=== PATIENT | female | born 1985 | race African-American/Black ===

== ENCOUNTER 2019-11-10 17:53 | Emergency (ER) | payer OTHER ==
[2019-11-10 18:20] VITALS: BMI 25.4
--- NOTE | 2019-11-10 18:47 | PDOC ---
Attending Attestation - Resident Resident Name: Bong Morse - HPI HPI: 11/10/19 19:30 Pt presents to the ED complaining of a one week history of fever, cough and shortness of breath. Diagnosed with flu in [place], but reports that her cough and fever have been persistent. Today, reports that she became acutely short of breath. Found to be saturating 80s on 6 L NC. PAtient denies past medical history, including lung problems or HIV. Denies leg swelling or pain. - Physicial Exam PE: 11/10/19 19:32 Agree with resident exam. PAtient is hypoxic, speaking in 3-4 word sentences. + tachycardia and fever. + decreased air entry and crackles in the bases. No accessory muscle use. - Medical Decision Making 11/10/19 19:33 Pt presents to the ED complaining of shortness of breath and fever. FOund to be febrile and severely hypoxic on arrival to the ED. STarted on high flow with great improvement in her oxygenation and improvement in her symptoms. Differential includes PNA, influenza, sepsis, HIV with PCP PNA, less likely PE, less likely pulmonary manefestations of lupus or sarcoid. Will check labs, start IV antibiotics and check CT chest. Will admit to medicine.
[2019-11-10] MEDS ORDERED: SODIUM CHLORIDE 1,769 ML IV ONE (18:48)
[2019-11-10] MEDS ORDERED: ACETAMINOPHEN 1000 MG/100 ML VIAL (NON FORMULARY) IVPB ONE (18:57)
[2019-11-10] MEDS ORDERED: ACETAMINOPHEN INJECTION 100 ML IVPB ONE (19:01)
[2019-11-10] MEDS ORDERED: PIPERACILLIN/TAZOB 4.5 GM 4.5 GM in DEXTROSE 5%-WATER 100 ML IVPB ONE (19:21)
[2019-11-10 19:22] LABS: BASO % 0.5 % (0-2.0); EOS % 0.1 % (0-4.5); LYMPH % 10.8 % (8-40); MCH 32.3 pg (25.7-33.7); MCHC 33.4 g/dl (32.0-36.0); MEAN CELL VOLUME 96.7 fl (80-96); MEAN PLT VOLUME 7.2 fl (7.5-11.1); MONO % 7.2 % (3.8-10.2); NEUT % 81.4 % (42.8-82.8); PLATELET COUNT 309 K/MM3 (134-434); RBC 3.73 M/mm3 (3.60-5.2); RDW 15.6 % (11.6-15.6); WHITE BLOOD COUNT 8.8 K/mm3 (4.0-10.0)
[2019-11-10] MEDS ORDERED: PIPERACILLIN/TAZOB 4.5 GM 4.5 GM/100 ML BAG IVPB ONE (19:29)
[2019-11-10 19:43] LABS: INR 1.16 (0.83-1.09); PROTHROMBIN TIME (PATIENT) 13.7 SEC (9.7-13.0)
[2019-11-10 19:46] LABS: ACTIVATED PTT 31.6 SECONDS (25.2-36.5)
[2019-11-10 19:50] LABS: ARTERIAL BLD GAS O2 SATURATION 69.6 % (95-98); ARTERIAL BLOOD GAS BASE EXCESS -1.5 meq/l (-2-2); ARTERIAL BLOOD GAS PCO2 35.9 mmHg (35-45); ARTERIAL BLOOD GAS pH 7.41 (7.35-7.45)
[2019-11-10 19:52] LABS: ARTERIAL BLOOD GAS PO2 < 49 mmHg (80-100)
[2019-11-10 19:53] LABS: ALLENS TEST POSITIVE
[2019-11-10 20:07] LABS: ALBUMIN 2.7 g/dl (3.4-5.0); ALK PHOS 76 U/L (45-117); ANION GAP 9 MMOL/L (8-16); BILIRUBIN,TOTAL 0.9 mg/dL (0.2-1); BLOOD UREA NITROGEN 11.8 mg/dL (7-18); CALCIUM 8.3 mg/dL (8.5-10.1); CHLORIDE 106 mmol/L (98-107); CO2 22 mmol/L (21-32); CREATININE 0.8 mg/dL (0.55-1.3); GLUCOSE,RANDOM 106 mg/dL (74-106); POTASSIUM 3.7 mmol/L (3.5-5.1); SGOT/AST 35 U/L (15-37); SGPT/ALT 14 U/L (13-61); SODIUM 137 mmol/L (136-145); TOT PROT 6.7 g/dl (6.4-8.2)
[2019-11-10 20:40] LABS: ARTERIAL BLD GAS O2 SATURATION 90.2 % (95-98); ARTERIAL BLOOD GAS BASE EXCESS -2.8 meq/l (-2-2); ARTERIAL BLOOD GAS PCO2 36.1 mmHg (35-45); ARTERIAL BLOOD GAS PO2 63.6 mmHg (80-100); ARTERIAL BLOOD GAS pH 7.39 (7.35-7.45); CARBOXYHEMOGLOBIN 1.1 % (0-2)
[2019-11-10] MEDS ORDERED: RAPID SEQUENCE INTUBATION KIT NR ONE ×2 (21:19→23:21)
[2019-11-10] MEDS ORDERED: PROPOFOL 1,000,000 MCG/100 ML VIAL ONE (21:21)
--- NOTE | 2019-11-10 21:43 | PDOC ---
History of Present Illness - General Chief Complaint: Cold Symptoms Stated Complaint: CHEST PAIN Time Seen by Provider: 11/10/19 18:24 - History of Present Illness Initial Comments: Ms. Stout is a 33 y/o female with no reported PMH. Reports that she was in [place] for the past two weeks when she was diagnosed with the flu and started feeling ill. She reports one week of fever, cough, and shortness of breath. Returned from [place] yesterday on a 2 hour flight. Today, she became acutely short of breath and presented to the ED. Saturating in the 60s on room air and 80s on 6L NC. Denies history of lung disease or family history of lung disease. Denies HIV or other immunocompromised state. Denies leg swelling or pain. Febrile. Past History - Past Medical History Allergies/Adverse Reactions: Allergies Allergy/AdvReac Type Severity Reaction Status Date / Time No Known Allergies Allergy Verified 11/10/19 18:13 Home Medications: Ambulatory Orders NK [No Known Home Medication] 11/10/19 COPD: No - Psycho Social/Smoking Cessation Hx Smoking History: Unknown if ever smoked Have you smoked in the past 12 months: No Hx Alcohol Use: No Drug/Substance Use Hx: No *Physical Exam - Vital Signs Last Vital Signs Temp Pulse Resp BP Pulse Ox 101.5 F H 110 H 36 H 142/103 H 80 L 11/10/19 17:55 11/10/19 21:00 11/10/19 21:00 11/10/19 21:00 11/10/19 21:00 - Physical Exam Agree with resident exam. PAtient is hypoxic, speaking in 3-4 word sentences. + tachycardia and fever. + decreased air entry and crackles in the bases. No accessory muscle use. ED Treatment Course - LABORATORY CBC & Chemistry Diagram: 11/10/19 18:41 11/10/19 18:41 - ADDITIONAL ORDERS Additional order review: Laboratory Results 11/10/19 11/10/19 11/10/19 20:12 19:20 18:41 PT with INR INR PTT (Actin FS) Anticoagulation Therapy No Result Required. No Result Required. Puncture Site No Result Required. Right radial ABG pH 7.39 7.41 ABG pCO2 at Pt Temp 36.1 35.9 ABG pO2 at Pt Temp 63.6 L < 49 L* ABG HCO3 21.2 L 22.2 ABG O2 Sat (Measured) 90.2 L 69.6 L ABG O2 Content 14.7 Fiberglass Technician ABG Base Excess -2.8 L -1.5 Jose Test No Result Required. Positive Carboxyhemoglobin 1.1 1.0 Methemoglobin < 1.0 1.2 O2 Delivery Device No Result Required. High flow n/c Oxygen Flow Rate No Result Required. 65% Vent Mode No Result Required. No Result Required. Vent Rate No Result Required. No Result Required. Mechanical Rate No Result Required. No Result Required. Pressure Support Vent No Result Required. No Result Required. Sodium Potassium Chloride Carbon Dioxide Anion Gap BUN Creatinine Est GFR (CKD-EPI)AfAm Est GFR (CKD-EPI)NonAf Random Glucose Lactic Acid Calcium Total Bilirubin AST ALT Alkaline Phosphatase Creatine Kinase Troponin I Total Protein Albumin Serum , Qual Negative 11/10/19 11/10/19 11/10/19 18:41 18:41 18:41 PT with INR 13.70 H INR 1.16 H PTT (Actin FS) 31.6 Anticoagulation Therapy Puncture Site ABG pH ABG pCO2 at Pt Temp ABG pO2 at Pt Temp ABG HCO3 ABG O2 Sat (Measured) ABG O2 Content ABG Base Excess Jose Test Carboxyhemoglobin Methemoglobin O2 Delivery Device Oxygen Flow Rate Vent Mode Vent Rate Mechanical Rate Pressure Support Vent Sodium 137 Potassium 3.7 Chloride 106 Carbon Dioxide 22 Anion Gap 9 BUN 11.8 Creatinine 0.8 Est GFR (CKD-EPI)AfAm 112.27 Est GFR (CKD-EPI)NonAf 96.87 Random Glucose 106 Lactic Acid 1.4 Calcium 8.3 L Total Bilirubin 0.9 AST 35 ALT 14 Alkaline Phosphatase 76 Creatine Kinase 33 Troponin I < 0.02 Total Protein 6.7 Albumin 2.7 L Serum , Qual 11/10/19 18:41 RBC 3.73 MCV 96.7 H MCHC 33.4 RDW 15.6 MPV 7.2 L Neutrophils % 81.4 Lymphocytes % 10.8 Monocytes % 7.2 Eosinophils % 0.1 Basophils % 0.5 - RADIOLOGY Radiology Studies Ordered: Category Date Time Status CHEST CTA [CT] Stat CT Scan 11/10/19 19:29 Completed CHEST X-RAY PORTABLE* [RAD] Stat Radiology 11/10/19 18:34 Taken - Medications Given in the ED: ED Medications Discontinued Medications Generic Name Dose Route Start Last Admin Trade Name Freq PRN Reason Stop Dose Admin Acetaminophen 1,000 mg 11/10/19 18:57 11/10/19 19:07 Ofirmev Injection - IVPB 11/10/19 18:58 1,000 mg ONCE ONE Administration Sodium Chloride 1,769 mls @ 884.5 mls/hr 11/10/19 18:48 11/10/19 19:07 Normal Saline - 30 ml/kg infuse over 2 hr (1769 ml) 11/10/19 20:47 884.5 mls/hr IV Administration ONCE ONE Piperacillin Sod/Tazobactam 100 mls @ 200 mls/hr 11/10/19 19:21 11/10/19 19: 50 Sod 4.5 gm/ Dextrose IVPB 11/10/19 19:50 200 mls/hr ONCE ONE Administration Protocol Medical Decision Making - Medical Decision Making 11/10/19 18:30 33 y/o female here with shortness of breath, fever, tachycardia, and tachypnea that started today. Recent travel to [place]. No other medical history. No hx of HIV or other immunocompromised state. No sick contacts. -cbc, cmp, coags, trop -blood cx -ua, ucx, upreg -cxr, ekg, trop -fluids -lactic -abg 11/10/19 19:00 Pt desats on room air to 40%. At 80% on 5LNC. Respiratory paged. Pt placed on HFNC 50 L/min, 63% FiO2, with much improvement fo 90% O2. CXR shows possible early infiltrates. EKG shows sinus tachycardia, 135 bpm, no ST elevation, no axis deviation, QTc 420. 11/10/19 21:35 CTA chest shows extensive bilateral alveolar and interstital opacities. Concern for ARDS. D/w Dr. Parsons in the ICU by Dr. Hernandez. Stated they will come down and evaluate the patient. [facility] contacted. 11/10/19 22:11 ICU arrived to bedside. CXR shows bilateral pulmonary infiltrates. 11/10/19 22:48 Pt accepted at [facility]. Multiple attempts made to contact the family to notify them of the transfer. Laboratory Tests 11/10/19 11/10/19 11/10/19 18:41 18:41 18:41 WBC 8.8 RBC 3.73 Hgb 12.0 Hct 36.0 MCV 96.7 H MCH 32.3 MCHC 33.4 RDW 15.6 Plt Count 309 MPV 7.2 L Absolute Neuts (auto) 7.1 Neutrophils % 81.4 Lymphocytes % 10.8 Monocytes % 7.2 Eosinophils % 0.1 Basophils % 0.5 Nucleated RBC % 0 PT with INR INR PTT (Actin FS) Anticoagulation Therapy Puncture Site ABG pH ABG pCO2 at Pt Temp ABG pO2 at Pt Temp ABG HCO3 ABG O2 Sat (Measured) ABG O2 Content ABG Base Excess Jose Test Carboxyhemoglobin Methemoglobin O2 Delivery Device Oxygen Flow Rate Vent Mode Vent Rate Mechanical Rate Pressure Support Vent Sodium 137 Potassium 3.7 Chloride 106 Carbon Dioxide 22 Anion Gap 9 BUN 11.8 Creatinine 0.8 Est GFR (CKD-EPI)AfAm 112.27 Est GFR (CKD-EPI)NonAf 96.87 Random Glucose 106 Lactic Acid Calcium 8.3 L Total Bilirubin 0.9 AST 35 ALT 14 Alkaline Phosphatase 76 Creatine Kinase 33 Troponin I < 0.02 Total Protein 6.7 Albumin 2.7 L Serum , Qual Influenza A (Rapid) Negative Influenza B (Rapid) Negative 11/10/19 11/10/19 11/10/19 18:41 18:41 18:41 WBC RBC Hgb Hct MCV MCH MCHC RDW Plt Count MPV Absolute Neuts (auto) Neutrophils % Lymphocytes % Monocytes % Eosinophils % Basophils % Nucleated RBC % PT with INR 13.70 H INR 1.16 H PTT (Actin FS) 31.6 Anticoagulation Therapy Puncture Site ABG pH ABG pCO2 at Pt Temp ABG pO2 at Pt Temp ABG HCO3 ABG O2 Sat (Measured) ABG O2 Content ABG Base Excess Jose Test Carboxyhemoglobin Methemoglobin O2 Delivery Device Oxygen Flow Rate Vent Mode Vent Rate Mechanical Rate Pressure Support Vent Sodium Potassium Chloride Carbon Dioxide Anion Gap BUN Creatinine Est GFR (CKD-EPI)AfAm Est GFR (CKD-EPI)NonAf Random Glucose Lactic Acid 1.4 Calcium Total Bilirubin AST ALT Alkaline Phosphatase Creatine Kinase Troponin I Total Protein Albumin Serum , Qual Negative Influenza A (Rapid) Influenza B (Rapid) 11/10/19 11/10/19 11/10/19 19:20 20:12 22:39 WBC RBC Hgb Hct MCV MCH MCHC RDW Plt Count MPV Absolute Neuts (auto) Neutrophils % Lymphocytes % Monocytes % Eosinophils % Basophils % Nucleated RBC % PT with INR INR PTT (Actin FS) Anticoagulation Therapy No Result Required. No Result Required. No Result Required. Puncture Site Right radial No Result Required. No Result Required. ABG pH 7.41 7.39 7.29 L ABG pCO2 at Pt Temp 35.9 36.1 48.2 H ABG pO2 at Pt Temp < 49 L* 63.6 L 156 H ABG HCO3 22.2 21.2 L 22.2 ABG O2 Sat (Measured) 69.6 L 90.2 L 98.2 H ABG O2 Content Fiberglass Technician 14.7 No Result Required. ABG Base Excess -1.5 -2.8 L -4.6 L Jose Test Positive No Result Required. No Result Required. Carboxyhemoglobin 1.0 1.1 < 0.5 Methemoglobin 1.2 < 1.0 < 1.0 O2 Delivery Device High flow n/c No Result Required. No Result Required. Oxygen Flow Rate 65% No Result Required. No Result Required. Vent Mode No Result Required. No Result Required. No Result Required. Vent Rate No Result Required. No Result Required. No Result Required. Mechanical Rate No Result Required. No Result Required. No Result Required. Pressure Support Vent No Result Required. No Result Required. No Result Required. Sodium Potassium Chloride Carbon Dioxide Anion Gap BUN Creatinine Est GFR (CKD-EPI)AfAm Est GFR (CKD-EPI)NonAf Random Glucose Lactic Acid Calcium Total Bilirubin AST ALT Alkaline Phosphatase Creatine Kinase Troponin I Total Protein Albumin Serum , Qual Influenza A (Rapid) Influenza B (Rapid) Discharge - Discharge Information Problems reviewed: Yes Clinical Impression/Diagnosis: ARDS (adult respiratory distress syndrome) Condition: Critical Disposition: TRANSFER ACUTE CARE/OTHER HOSP - Follow up/Referral - Patient Discharge Instructions - Post Discharge Activity - Transfer to Acute Care Facility [facility] ( Janel aMe MD)
--- NOTE | 2019-11-10 22:52 | PDOC ---
*Physical Exam - Vital Signs Last Vital Signs Temp Pulse Resp BP Pulse Ox 101.5 F H 110 H 14 142/103 H 80 L 11/10/19 17:55 11/10/19 21:00 11/10/19 21:35 11/10/19 21:00 11/10/19 21:00 ED Treatment Course - LABORATORY CBC & Chemistry Diagram: 11/10/19 18:41 11/10/19 18:41 - ADDITIONAL ORDERS Additional order review: Laboratory Results 11/10/19 11/10/19 11/10/19 20:12 19:20 18:41 PT with INR INR PTT (Actin FS) Anticoagulation Therapy No Result Required. No Result Required. Puncture Site No Result Required. Right radial ABG pH 7.39 7.41 ABG pCO2 at Pt Temp 36.1 35.9 ABG pO2 at Pt Temp 63.6 L < 49 L* ABG HCO3 21.2 L 22.2 ABG O2 Sat (Measured) 90.2 L 69.6 L ABG O2 Content 14.7 Radiochemical Technician ABG Base Excess -2.8 L -1.5 Jose Test No Result Required. Positive Carboxyhemoglobin 1.1 1.0 Methemoglobin < 1.0 1.2 O2 Delivery Device No Result Required. High flow n/c Oxygen Flow Rate No Result Required. 65% Vent Mode No Result Required. No Result Required. Vent Rate No Result Required. No Result Required. Mechanical Rate No Result Required. No Result Required. Pressure Support Vent No Result Required. No Result Required. Sodium Potassium Chloride Carbon Dioxide Anion Gap BUN Creatinine Est GFR (CKD-EPI)AfAm Est GFR (CKD-EPI)NonAf Random Glucose Lactic Acid Calcium Total Bilirubin AST ALT Alkaline Phosphatase Creatine Kinase Troponin I Total Protein Albumin Serum , Qual Negative 11/10/19 11/10/19 11/10/19 18:41 18:41 18:41 PT with INR 13.70 H INR 1.16 H PTT (Actin FS) 31.6 Anticoagulation Therapy Puncture Site ABG pH ABG pCO2 at Pt Temp ABG pO2 at Pt Temp ABG HCO3 ABG O2 Sat (Measured) ABG O2 Content ABG Base Excess Jose Test Carboxyhemoglobin Methemoglobin O2 Delivery Device Oxygen Flow Rate Vent Mode Vent Rate Mechanical Rate Pressure Support Vent Sodium 137 Potassium 3.7 Chloride 106 Carbon Dioxide 22 Anion Gap 9 BUN 11.8 Creatinine 0.8 Est GFR (CKD-EPI)AfAm 112.27 Est GFR (CKD-EPI)NonAf 96.87 Random Glucose 106 Lactic Acid 1.4 Calcium 8.3 L Total Bilirubin 0.9 AST 35 ALT 14 Alkaline Phosphatase 76 Creatine Kinase 33 Troponin I < 0.02 Total Protein 6.7 Albumin 2.7 L Serum , Qual 11/10/19 18:41 RBC 3.73 MCV 96.7 H MCHC 33.4 RDW 15.6 MPV 7.2 L Neutrophils % 81.4 Lymphocytes % 10.8 Monocytes % 7.2 Eosinophils % 0.1 Basophils % 0.5 - Medications Given in the ED: ED Medications Discontinued Medications Generic Name Dose Route Start Last Admin Trade Name Freq PRN Reason Stop Dose Admin Acetaminophen 1,000 mg 11/10/19 18:57 11/10/19 19:07 Ofirmev Injection - IVPB 11/10/19 18:58 1,000 mg ONCE ONE Administration Sodium Chloride 1,769 mls @ 884.5 mls/hr 11/10/19 18:48 11/10/19 19:07 Normal Saline - 30 ml/kg infuse over 2 hr (1769 ml) 11/10/19 20:47 884.5 mls/hr IV Administration ONCE ONE Piperacillin Sod/Tazobactam 100 mls @ 200 mls/hr 11/10/19 19:21 11/10/19 19: 50 Sod 4.5 gm/ Dextrose IVPB 11/10/19 19:50 200 mls/hr ONCE ONE Administration Protocol Medical Decision Making - Critical Care Time Total Critical Care Time (minutes): 120 Critical Care Statement: The care of this patient involved high complexity decision making to prevent further life threatening deterioration of the patient 's condition and/or to evaluate & treat vital organ system(s) failure or risk of failure. - Medical Decision Making 11/10/19 22:44 33-year-old female signed out to me pending results with respiratory distress and fever Chest x-ray and CT scan suggest ARDS likely post viral illness Patient rapidly declined with increased work of breathing and hypoxia, lowest recorded was 67% She was rapidly intubated Antibiotics administered Due to patient's age, rapid decline and severity of CT chest findings she was presented to the ICU/ECMO team at [facility] and was excepted Discharge - Discharge Information Problems reviewed: Yes Clinical Impression/Diagnosis: ARDS (adult respiratory distress syndrome) Condition: Critical - Follow up/Referral - Patient Discharge Instructions - Post Discharge Activity - Transfer to Acute Care Facility Receiving Facility Name: [facility]
[2019-11-10 23:00] LABS: ARTERIAL BLD GAS O2 SATURATION 98.2 % (95-98); ARTERIAL BLOOD GAS BASE EXCESS -4.6 meq/l (-2-2); ARTERIAL BLOOD GAS PCO2 48.2 mmHg (35-45); ARTERIAL BLOOD GAS pH 7.29 (7.35-7.45)
[2019-11-10] MEDS ORDERED: FENTANYL INJECTION 500 MCG in DEXTROSE 5%-WATER - 90 ML IVPB SCH ×2 (23:00→23:37)
[2019-11-10 23:01] LABS: ARTERIAL BLOOD GAS PO2 156 mmHg (80-100)
[2019-11-10] MEDS ORDERED: ROCURONIUM BROMIDE 50 MG/5 ML VIAL IV ONE ×2 (23:01→23:18)
[2019-11-10 23:03] LABS: CARBOXYHEMOGLOBIN < 0.5 % (0-2)
[2019-11-10] MEDS ORDERED: fentaNYL CITRATE 250 MCG/5 ML VIAL ONE (23:27)
[2019-11-10] MEDS ORDERED: ETOMIDATE 40 MG/20 ML VIAL IVPUSH ONE (23:37)
[2019-11-10] MEDS ORDERED: SUCCINYLCHOLINE CHLORIDE 200 MG/10 ML VIAL IVPUSH ONE (23:37)
[2019-11-10] MEDS ORDERED: PROPOFOL 200 MG/20 ML VIAL IVPUSH ONE ×2 (23:38)
[2019-11-10] MEDS ORDERED: PROPOFOL 1,000,000 MCG/100 ML VIAL IVPB SCH (23:45)
[2019-11-11 06:45] VITALS: BP 163/125; PULSE 137
[2019-11-11 06:47] VITALS: TEMP 98.8
--- NOTE | 2019-11-11 12:03 | EKG ---
Test Reason : Blood Pressure : / mmHG Vent. Rate : 135 BPM Atrial Rate : 135 BPM P-R Int : 124 ms QRS Dur : 070 ms QT Int : 280 ms P-R-T Axes : 044 047 -18 degrees QTc Int : 420 ms SINUS TACHYCARDIA POSSIBLE LEFT ATRIAL ENLARGEMENT NONSPECIFIC T WAVE ABNORMALITY ABNORMAL ECG Confirmed by MD SHABNAM, CHRIS ([id number]) on 11/11/2019 12:02:36 PM Referred By: Confirmed By:CHRIS HAQUE MD
== END 2019-11-11 02:19 | disposition short-term general hospital (02) ==
LOC: JER 17:53
PROC: 3E03329 Introduction of Other Anti-infective into Peripheral Vein, Percutaneous Approach (ICD-10-PCS; principal; 2019-11-10)
PROC: 3E033NZ Introduction of Analgesics, Hypnotics, Sedatives into Peripheral Vein, Percutaneous Approach (ICD-10-PCS; 2019-11-10)
PROC: 3E033FZ Introduction of Intracirculatory Anesthetic into Peripheral Vein, Percutaneous Approach (ICD-10-PCS; 2019-11-10)
PROC: 3E033FZ Introduction of Intracirculatory Anesthetic into Peripheral Vein, Percutaneous Approach (ICD-10-PCS; 2019-11-10)
PROC: 3E033NZ Introduction of Analgesics, Hypnotics, Sedatives into Peripheral Vein, Percutaneous Approach (ICD-10-PCS; 2019-11-10)
PROC: 3E033NZ Introduction of Analgesics, Hypnotics, Sedatives into Peripheral Vein, Percutaneous Approach (ICD-10-PCS; 2019-11-10)
PROC: 0BH17EZ Insertion of Endotracheal Airway into Trachea, Via Natural or Artificial Opening (ICD-10-PCS; 2019-11-10)
DX: J80 Acute respiratory distress syndrome (principal)
CPT/HCPCS: 36415; 36600; 71045-TC-FY; 71275-TC; 80053; 82375; 82550; 82803; 83050; 83605; 84484; 84703; 85025; 85610; 85730; 87040; 87804; 93005; 93010; 99285-25; J0131; J7030; Q9967